=== PATIENT | male | born 1945 | race Caucasian/White ===

== ENCOUNTER 2018-08-30 19:30 | Inpatient (IN) ==
[2018-08-30] MEDS ORDERED: ALBUTEROL/IPRATROPIUM 3 ML NEB RESP TX STA (20:13)
[2018-08-30] MEDS ORDERED: SODIUM CHLORIDE 0.9% 500 ML IV STA (20:13)
[2018-08-30 20:39] LABS: Basophils % 0.2 % (0.0-0.8); Immature Granulocytes % 0.7 %; Immature Granulocytes Absolute 0.08 #; Lymphocytes # 0.7 10*3/uL (1.4-4.0); Lymphocytes % 6.8 % (21.2-54.2); Mean Corpuscular HGB Conc 30.1 GM/DL (32-36); Mean Corpuscular Volume 91.1 FL (87-102); Mean Platelet Volume 11.2 FL (9.6-12.0); Monocytes % 12.5 % (1.7-12.7); NRBC # 0.07 10*3/uL; Neutrophils % 79.8 % (38.7-73.9); Platelet Count 286 T/CUMM (130-400); Red Cell Distribution Width 19.3 % (9.3-17.3); White Blood Count 10.8 T/CUMM (4-12)
[2018-08-30 20:42] LABS: Hematocrit 17.3 VOL% (42.0-52.0); Hemoglobin 5.2 GM/DL (14.0-18.0)
[2018-08-30 21:06] LABS: Albumin 3.4 G/DL (3.4-5.0); Bilirubin,Total 0.4 MG/DL (0.2-1.0); Calcium 8.6 MG/DL (8.5-10.1); Total Protein 6.4 G/DL (6.4-8.3)
[2018-08-30] MEDS ORDERED: ONDANSETRON 4 MG/2 ML VIAL IV PRN (22:16)
[2018-08-30] MEDS ORDERED: MORPHINE 4 MG/1 ML VIAL IV PRN (22:16)
[2018-08-30] MEDS ORDERED: NICOTINE 21 MG/24 HR PATCH TRANSDERM PRN (22:16)
[2018-08-30] MEDS ORDERED: SODIUM CHLORIDE 0.9% 1,000 ML IV PRN (22:25)
[2018-08-30] MEDS ORDERED: PANTOPRAZOLE INJ 80 MG in SODIUM CHLORIDE 0.9% 100 ML IV ONE (23:00)
[2018-08-30] MEDS: methylPREDNISolone SOD SUC 40 MG/1 ML VIAL IV SCH (23:44)
[2018-08-30] MEDS: SODIUM CHLORIDE 0.9% 1,000 ML IV SCH (23:45)
[2018-08-31] MEDS: ALBUTEROL/IPRATROPIUM 3 ML NEB RESP TX SCH ×4 (00:49→19:24)
[2018-08-31] MEDS ORDERED: FUROSEMIDE 20 MG/2 ML VIAL IV ONE (01:00)
[2018-08-31] MEDS: PANTOPRAZOLE INJ 200 MG in SODIUM CHLORIDE 0.9% 250 ML IV SCH ×2 (01:22→23:05)
[2018-08-31] MEDS ORDERED: SODIUM CHLORIDE 0.9% 1,000 ML IV PRN (06:10)
[2018-08-31 07:20] LABS: Albumin 3.3 G/DL (3.4-5.0); Calcium 8.4 MG/DL (8.5-10.1); Osmolality,Calculated 292.7 MOS/KG (273-304); Total Protein 6.3 G/DL (6.4-8.3)
[2018-08-31] MEDS: SODIUM CHLORIDE 0.9% 1,000 ML IV SCH (09:06)
[2018-08-31] MEDS: SODIUM BICARB INJ 100 MEQ in DEXTROSE 5% 1,000 ML IV SCH ×4 (09:07→23:02)
[2018-08-31 09:36] LABS: Hematocrit 20.8 VOL% (42.0-52.0); Hemoglobin 6.6 GM/DL (14.0-18.0)
[2018-08-31 09:37] LABS: Basophils % 0.2 % (0.0-0.8); Hemoglobin 6.8 GM/DL (14.0-18.0); Immature Granulocytes % 0.7 %; Immature Granulocytes Absolute 0.06 #; Lymphocytes # 0.3 10*3/uL (1.4-4.0); Lymphocytes % 3.8 % (21.2-54.2); Mean Corpuscular HGB Conc 30.9 GM/DL (32-36); Mean Corpuscular Volume 91.3 FL (87-102); Mean Platelet Volume 10.9 FL (9.6-12.0); Monocytes % 2.8 % (1.7-12.7); NRBC # 0.06 10*3/uL; Neutrophils % 92.5 % (38.7-73.9); Platelet Count 213 T/CUMM (130-400); Red Blood Count 2.41 MC/CUMM (3.8-5.5); Red Cell Distribution Width 17.3 % (9.3-17.3); White Blood Count 8.2 T/CUMM (4-12)
[2018-08-31 09:58] LABS: Lymphocytes 2 % (20-55); Platelet Estimate Adequate; Segmented Neutrophils 94 % (50-85); Total Cells Counted 100
[2018-08-31 09:59] LABS: Hypochromasia 1+
[2018-08-31] MEDS: methylPREDNISolone SOD SUC 40 MG/1 ML VIAL IV SCH ×2 (10:17→23:01)
[2018-08-31] MEDS: ATORVASTATIN 40 MG TABLET PO SCH (11:24)
[2018-08-31 16:14] LABS: Hematocrit 27.2 VOL% (42.0-52.0); Hemoglobin 8.8 GM/DL (14.0-18.0)
[2018-08-31] MEDS: rOPINIRole 0.25 MG TABLET PO SCH (20:34)
[2018-09-01] MEDS: ALBUTEROL/IPRATROPIUM 3 ML NEB RESP TX SCH ×4 (01:02→19:06)
[2018-09-01 05:54] LABS: Basophils % 0.1 % (0.0-0.8); Hematocrit 25.8 VOL% (42.0-52.0); Hemoglobin 8.3 GM/DL (14.0-18.0); Immature Granulocytes Absolute 0.11 #; Lymphocytes # 0.3 10*3/uL (1.4-4.0); Lymphocytes % 2.3 % (21.2-54.2); Mean Corpuscular HGB Conc 32.2 GM/DL (32-36); Mean Corpuscular Volume 87.8 FL (87-102); Mean Platelet Volume 10.9 FL (9.6-12.0); Monocytes % 5.4 % (1.7-12.7); NRBC # 0.11 10*3/uL; Neutrophils % 91.2 % (38.7-73.9); Platelet Count 201 T/CUMM (130-400); Red Blood Count 2.94 MC/CUMM (3.8-5.5); Red Cell Distribution Width 17.2 % (9.3-17.3); White Blood Count 11.2 T/CUMM (4-12)
[2018-09-01 06:09] LABS: Calcium 8.2 MG/DL (8.5-10.1); Osmolality,Calculated 284.1 MOS/KG (273-304)
[2018-09-01 06:14] LABS: Lymphocytes 2 % (20-55); Nucleated Red Blood Cells 1 (0-5); Platelet Estimate Adequate; Segmented Neutrophils 94 % (50-85); Total Cells Counted 100
[2018-09-01 06:15] LABS: Burr Cells Slight; Hypochromasia 1+; Ovalocytes Slight
[2018-09-01] MEDS: SODIUM BICARB INJ 100 MEQ in DEXTROSE 5% 1,000 ML IV SCH (07:30)
[2018-09-01] MEDS: SODIUM BICARB INJ 150 MEQ in DEXTROSE 5% 1,000 ML IV SCH ×3 (08:00→23:35)
[2018-09-01] MEDS ORDERED: LACTATED RINGERS 1,000 ML IV SCH (08:00)
[2018-09-01] MEDS: ATORVASTATIN 40 MG TABLET PO SCH (08:25)
[2018-09-01] MEDS: methylPREDNISolone SOD SUC 40 MG/1 ML VIAL IV SCH ×2 (09:45→21:32)
[2018-09-01] MEDS ORDERED: PROPOFOL 200 MG/20 ML VIAL IV ONE (10:00)
[2018-09-01] MEDS ORDERED: LIDOCAINE 2% 5 ML VIAL ONE (10:00)
[2018-09-01] MEDS ORDERED: ETOMIDATE 20 MG/10 ML VIAL IV ONE (10:00)
[2018-09-01] MEDS ORDERED: BISACODYL 5 MG TABLET PO ONE (12:00)
[2018-09-01] MEDS ORDERED: POLYETHYLENE GLYCOL POWDER 255 GM BOTTLE PO ONE (18:00)
[2018-09-01] MEDS: rOPINIRole 0.25 MG TABLET PO SCH (21:23)
[2018-09-02] MEDS: ALBUTEROL/IPRATROPIUM 3 ML NEB RESP TX SCH ×4 (00:30→19:41)
[2018-09-02 05:26] LABS: Basophils % 0.1 % (0.0-0.8); Hematocrit 24.1 VOL% (42.0-52.0); Hemoglobin 7.7 GM/DL (14.0-18.0); Immature Granulocytes % 0.5 %; Immature Granulocytes Absolute 0.05 #; Lymphocytes # 0.2 10*3/uL (1.4-4.0); Lymphocytes % 1.6 % (21.2-54.2); Mean Corpuscular Volume 87.3 FL (87-102); Mean Platelet Volume 10.8 FL (9.6-12.0); Monocytes % 6.2 % (1.7-12.7); NRBC # 0.06 10*3/uL; Neutrophils % 91.6 % (38.7-73.9); Platelet Count 214 T/CUMM (130-400); Red Blood Count 2.76 MC/CUMM (3.8-5.5); Red Cell Distribution Width 17.2 % (9.3-17.3); White Blood Count 10.4 T/CUMM (4-12)
[2018-09-02 05:28] LABS: INR 1.1; PT Patient Result 12.4 SECS
[2018-09-02 05:44] LABS: Calcium 8.3 MG/DL (8.5-10.1); Osmolality,Calculated 284.7 MOS/KG (273-304)
[2018-09-02 05:48] LABS: Hypochromasia 1+; Lymphocytes 2 % (20-55); Platelet Estimate Adequate; Segmented Neutrophils 95 % (50-85); Total Cells Counted 100
[2018-09-02] MEDS ORDERED: SODIUM CHLORIDE 0.9% 1,000 ML IV PRN (07:15)
[2018-09-02] MEDS ORDERED: FUROSEMIDE 40 MG/4 ML VIAL IV ONE (07:17)
[2018-09-02] MEDS: ATORVASTATIN 40 MG TABLET PO SCH (09:00)
[2018-09-02] MEDS: PANTOPRAZOLE 40 MG TABLET PO SCH ×2 (09:00→20:46)
[2018-09-02] MEDS: LACTATED RINGERS 1,000 ML IV SCH (09:26)
[2018-09-02] MEDS ORDERED: PROPOFOL 200 MG/20 ML VIAL IV ONE (09:30)
[2018-09-02] MEDS ORDERED: PHENYLEPHRINE 1 MG/10 ML SYRINGE IV ONE (09:30)
[2018-09-02] MEDS ORDERED: LIDOCAINE 1% 5 ML VIAL ONE (09:30)
[2018-09-02] MEDS ORDERED: ETOMIDATE 20 MG/10 ML VIAL IV ONE (09:30)
[2018-09-02] MEDS: SODIUM BICARB INJ 150 MEQ in DEXTROSE 5% 1,000 ML IV SCH ×2 (14:53→20:46)
[2018-09-02] MEDS: methylPREDNISolone SOD SUC 40 MG/1 ML VIAL IV SCH (14:59)
[2018-09-02] MEDS: rOPINIRole 0.25 MG TABLET PO SCH (20:46)
[2018-09-03] MEDS: methylPREDNISolone SOD SUC 40 MG/1 ML VIAL IV SCH ×3 (00:21→23:24)
[2018-09-03] MEDS: SODIUM BICARB INJ 150 MEQ in DEXTROSE 5% 1,000 ML IV SCH ×2 (00:28→07:39)
[2018-09-03] MEDS: ALBUTEROL/IPRATROPIUM 3 ML NEB RESP TX SCH ×4 (02:04→19:09)
[2018-09-03 04:53] LABS: Basophils % 0.1 % (0.0-0.8); Hematocrit 28.6 VOL% (42.0-52.0); Hemoglobin 9.2 GM/DL (14.0-18.0); Immature Granulocytes % 0.5 %; Immature Granulocytes Absolute 0.04 #; Lymphocytes # 0.1 10*3/uL (1.4-4.0); Lymphocytes % 1.6 % (21.2-54.2); Mean Corpuscular HGB Conc 32.2 GM/DL (32-36); Mean Corpuscular Volume 89.4 FL (87-102); Mean Platelet Volume 10.3 FL (9.6-12.0); Monocytes % 9.1 % (1.7-12.7); NRBC # 0.04 10*3/uL; Neutrophils % 88.7 % (38.7-73.9); Platelet Count 199 T/CUMM (130-400); Red Cell Distribution Width 16.2 % (9.3-17.3); White Blood Count 8.4 T/CUMM (4-12)
[2018-09-03 05:29] LABS: Hypochromasia 1+; Lymphocytes 3 % (20-55); Ovalocytes Slight; Platelet Estimate Adequate; Segmented Neutrophils 90 % (50-85); Total Cells Counted 100
[2018-09-03] MEDS: LACTATED RINGERS 1,000 ML IV SCH (08:36)
[2018-09-03] MEDS: ATORVASTATIN 40 MG TABLET PO SCH (08:36)
[2018-09-03] MEDS: PANTOPRAZOLE 40 MG TABLET PO SCH ×2 (08:36→21:26)
[2018-09-03] MEDS: POTASSIUM CHLORIDE 20 MEQ TABLET PO SCH ×2 (09:02→12:01)
[2018-09-03 12:03] LABS: Hematocrit 31.5 VOL% (42.0-52.0); Hemoglobin 10.1 GM/DL (14.0-18.0)
[2018-09-03 19:44] LABS: Hematocrit 31.6 VOL% (42.0-52.0); Hemoglobin 10.2 GM/DL (14.0-18.0)
[2018-09-03] MEDS: rOPINIRole 0.25 MG TABLET PO SCH (21:26)
[2018-09-04] MEDS: ALBUTEROL/IPRATROPIUM 3 ML NEB RESP TX SCH ×2 (00:42→07:32)
[2018-09-04 06:48] LABS: Basophils % 0.1 % (0.0-0.8); Hematocrit 34.2 VOL% (42.0-52.0); Hemoglobin 10.5 GM/DL (14.0-18.0); Immature Granulocytes % 0.7 %; Immature Granulocytes Absolute 0.07 #; Lymphocytes # 0.1 10*3/uL (1.4-4.0); Lymphocytes % 1.3 % (21.2-54.2); Mean Corpuscular HGB Conc 30.7 GM/DL (32-36); Mean Platelet Volume 9.9 FL (9.6-12.0); Monocytes % 3.2 % (1.7-12.7); NRBC # 0.02 10*3/uL; Neutrophils % 94.7 % (38.7-73.9); Platelet Count 222 T/CUMM (130-400); Red Blood Count 3.76 MC/CUMM (3.8-5.5); Red Cell Distribution Width 16.6 % (9.3-17.3); White Blood Count 9.9 T/CUMM (4-12)
[2018-09-04 07:19] LABS: Lymphocytes 1 % (20-55); Nucleated Red Blood Cells 1 (0-5); Platelet Estimate Normal; Segmented Neutrophils 96 % (50-85); Total Cells Counted 100
[2018-09-04 07:20] LABS: Anisocytosis 1+; Macrocytosis Slight; Poikilocytosis Slight; Polychromasia Slight
[2018-09-04 07:54] VITALS: BP 130/85
[2018-09-04] MEDS: ATORVASTATIN 40 MG TABLET PO SCH (08:43)
[2018-09-04] MEDS: PANTOPRAZOLE 40 MG TABLET PO SCH (08:43)
== END 2018-09-04 09:35 | disposition home or self-care (01) | DRG 813 ==
LOC: N.ED 19:30 → SUATTDRO 22:31 → N.EDINP 22:31 → N.ICU 23:11 → N.5E 08-31 13:27
PROVIDERS: ADMIT Internal Medicine; ATTEND Internal Medicine